=== PATIENT | female | born 1975 | race Caucasian/White ===

== ENCOUNTER → 2023-06-03 19:30 | Outpatient (REF) | payer OTHER, SELFPAY | LOC: WDC 19:30 | PROVIDERS: ATTENDING PHYSICIAN Nurse Practitioner Family | DX: Z12.31 Encounter for screening mammogram for malignant neoplasm of breast (principal) | CPT/HCPCS: 77063; 77067 ==

== ENCOUNTER → 2024-01-17 16:17 | Outpatient (REF) | payer OTHER, SELFPAY | LOC: RAD 16:17 | PROVIDERS: ATTENDING PHYSICIAN Nurse Practitioner Family | DX: R07.89 Other chest pain (principal) | CPT/HCPCS: 71046; 93005 ==

== ENCOUNTER 2024-04-30 06:22 | Day surgery (SDC) | payer OTHER, SELFPAY | END 2024-04-30 10:06 | disposition home or self-care (01) | LOC: GI 06:22 | PROVIDERS: ATTENDING PHYSICIAN Internal Medicine | DX: K92.1 Melena (principal); K64.8 Other hemorrhoids | CPT/HCPCS: 45378 ==

== ENCOUNTER → 2025-03-03 17:38 | Outpatient (REF) | payer OTHER, SELFPAY | LOC: WDC 17:38 | PROVIDERS: ATTENDING PHYSICIAN Nurse Practitioner Adult Health; FAMILY PHYSICIAN Family Medicine | DX: Z12.31 Encounter for screening mammogram for malignant neoplasm of breast (principal) | CPT/HCPCS: 77063; 77067 ==